=== PATIENT | female | born 1950 | race Hispanic/Latino ===

== ENCOUNTER 2017-08-27 23:37 | Emergency (ER) | payer OTHER ==
[~2017-08-27] VITALS: Ht 152.4 cm; Wt 61.7 kg
[~2017-08-27 23:37] MED LIST: ACTOS15 MG PO; ALENDRONATE SOD70 MG PO; ASPIRIN325 MG PO; GLIMEPIRIDE2 MG PO; METFORMIN HCL1000 M1 PO; PLAVIX75 MG PO; PRAVASTATIN SOD40 MG PO; ULTRAM 50MG50 MG PO; ZESTRIL2.5 MG PO
--- NOTE | 2017-08-28 00:26 | Diagnostic Imaging Report ---
RIBS UNILAT W/CXR HISTORY: Left-sided rib pain. COMPARISON: None FINDINGS: Bones: No displaced fracture. Osseous alignment is within normal limits. Joints: The joint spaces are well-maintained. Soft tissues: The soft tissues appear unremarkable. The lungs are clear. No evidence of cardiomegaly, pleural effusion or pneumothorax. IMPRESSION: No acute osseous abnormality. Signed by: Dr. Eder Alfaro M.D. on 08/28/2017 12:23 AM
== END 2017-08-28 00:41 | disposition home or self-care (01) ==
LOC: ER 23:37
DX: R07.89 Other chest pain (principal); Y93.F2 Activity, caregiving, lifting; Y92.008 Other place in unspecified non-institutional (private) residence as the place of occurrence of the external cause; I10 Essential (primary) hypertension; E11.9 Type 2 diabetes mellitus without complications; M81.0 Age-related osteoporosis without current pathological fracture
CPT/HCPCS: 71101; 99283

== ENCOUNTER → 2017-10-03 | Outpatient (CLI) | payer OTHER | LOC: CARD 08:35 | PROVIDERS: ATTEND Specialist | DX: I65.29 Occlusion and stenosis of unspecified carotid artery (principal) | CPT/HCPCS: 93880 ==